=== PATIENT | male | born 1965 ===

== ENCOUNTER 2020-08-23 11:32 | Day surgery (SDC) | payer OTHER | END 2020-08-23 15:25 | disposition home or self-care (01) | LOC: AMB-ENDOS 11:32 | PROVIDERS: ATTEND Surgery | DX: D12.2 Benign neoplasm of ascending colon (principal); Z20.822 Contact with and (suspected) exposure to COVID-19; Z12.11 Encounter for screening for malignant neoplasm of colon ==